=== PATIENT | female | born 1990 | race Caucasian/White ===

== ENCOUNTER 2023-01-14 00:41 | Emergency (ER) | payer OTHER ==
[2023-01-14 01:26] VITALS: BP 121/75; PULSE 75; RESP 16; TEMP 97.5; BMI 25.7
[2023-01-14 06:28] LABS: EPI CELLS 31 /uL (0-25.1); HYALINE CASTS 1 /uL (0-3.1); URINE APPEARANCE CLEAR; URINE BACTERIA 155 /uL (0-1359); URINE BILIRUBIN 1+ (NEGATIVE); URINE COLOR DK YELLOW; URINE GLUCOSE (UA) NEGATIVE (NEGATIVE); URINE KETONE TRACE (NEGATIVE); URINE LEUK ESTERASE TRACE (NEGATIVE); URINE NITRITE NEGATIVE (NEGATIVE); URINE PROTEIN 1+ (NEGATIVE); URINE RBC 14 /uL (0-23.9); URINE WBC 87 /uL (0-25.8)
== END 2023-01-14 01:36 | disposition home or self-care (01) ==
LOC: FER 00:41
DX: J45.20 Mild intermittent asthma, uncomplicated (principal); R30.0 Dysuria
CPT/HCPCS: 81003; 84703; 87086; 99283-25